=== PATIENT | female | born 1980 ===

== ENCOUNTER 2018-05-01 00:36 | Emergency (ER) | payer OTHER ==
[2018-05-01 01:27] LABS: ABSOLUTE BASOPHIL COUNT 0 /CUMM (0.0-0.2); ABSOLUTE EOSINOPHIL COUNT 0.2 /CUMM (0.0-0.7); ABSOLUTE GRANULOCYTE CT 3.9 /CUMM (1.4-6.5); ABSOLUTE MONOCYTE COUNT 0.7 /CUMM (0.10-0.60); BASOPHIL % 0.5 % (0.0-2.0); EOSINOPHIL % 2.2 % (0-5); HEMATOCRIT 35.9 % (37-47); MEAN CORPUSCULAR HGB 25.4 PG (27.0-31.0); MEAN CORPUSCULAR HGB CONC 32.8 G/DL (33.0-37.0); MEAN CORPUSCULAR VOLUME 77.6 FL (81.0-99.0); MEAN PLATELET VOLUME 7.9 FL (7.4-10.4); PLATELET COUNT 268 /CUMM (130-400); RBC DISTRIBUTION WIDTH 17.4 % (11.5-14.5); RED BLOOD CELL CT 4.63 /CUMM (4.20-5.40); WHITE BLOOD CELL COUNT 8.8 /CUMM (4.8-10.8)
--- NOTE | 2018-05-01 02:09 | ED GENERAL ADULT ---
History of Present Illness General Chief Complaint: Dizziness Stated Complaint: DIZZINESS/NV Source: patient, family, old records Exam Limitations: no limitations Vital Signs & Intake/Output Vital Signs & Intake/Output Vital Signs Date Time Temp Pulse Resp B/P B/P Pulse O2 O2 Flow FiO2 Mean Ox Delivery Rate 05/01 0130 98.3 80 17 122/70 98 Room Air Room Air Allergies Coded Allergies: No Known Allergies (05/01/18) Triage Note: PT TO TRIAGE AFTER HAVING ACUTE ONSET OF DIZZINESS, NAUSEA AND FEELING OF SPINNING. PT STATES SHE ONLY ATE A LITTLE BIT OF BAGEL, AND SOME CANDY AT WORK TODAY, BS 105 AT TRIAGE. PT DENIES PAIN. SKIN COOL AND CLAMMY. PT ACTIVELY RETCHING IN TRIAGE. Triage Nurses Notes Reviewed? yes Onset: yesterday Duration: hour(s):, continues in ED, getting worse Timing: recent history Injury Environment: home Severity: severe Modifying Factors: Improves With: rest. Worsens With: movement. LMP (ages 10-50): unknown : No Patient currently breastfeeds: No HPI: Several hours prior to admission patient complained of upset stomach. Prior to admission arriving home from work she complained of dizziness with nausea vomiting. She denies fever chills diarrhea abdominal pain chest pain cough shortness of breath headache dysuria rash bleeding. Past History Travel History Traveled to [place] past 21 day No Medical History Any Pertinent Medical History? none Neurological: NONE EENT: NONE Cardiovascular: NONE Respiratory: NONE Gastrointestinal: NONE Hepatic: NONE Renal: NONE Musculoskeletal: NONE Psychiatric: NONE Endocrine: NONE Blood Disorders: NONE Cancer(s): NONE ENGINEERING TECHNICAL WRITER/Reproductive: NONE Surgical History Surgical History: non-contributory Psychosocial History What is your primary language Maur[place]ian Tobacco Use: Never used ETOH Use: denies use Illicit Drug Use: denies illicit drug use Family History Hx Contributory? No Review of Systems Review of Systems Constitutional: Reports: see HPI, malaise. EENTM: Reports: no symptoms. Respiratory: Reports: no symptoms. Cardiovascular: Reports: no symptoms. GI: Reports: see HPI, vomiting. Genitourinary: Reports: no symptoms. Musculoskeletal: Reports: no symptoms. Skin: Reports: no symptoms. Neurological/Psychological: Reports: see HPI. Hematologic/Endocrine: Reports: no symptoms. Immunologic/Allergic: Reports: no symptoms. All Other Systems: Reviewed and Negative Physical Exam Physical Exam General Appearance: well developed/nourished, alert, awake, anxious, severe distress, thin Head: atraumatic, normal appearance Eyes: Bilateral: normal appearance, PERRL, EOMI, other (Nystagmus). Ears, Nose, Throat: normal pharynx, normal ENT inspection, hearing grossly normal Neck: normal inspection, supple, full range of motion, no midline tenderness Respiratory: normal breath sounds, chest non-tender, no respiratory distress, quiet respiration, lungs clear Cardiovascular: regular rate/rhythm, normal peripheral pulses, norml femoral pulses equa Peripheral Pulses: 4+ carotid (R), 4+ carotid (L) Gastrointestinal: normal bowel sounds, soft, non-tender, no organomegaly Back: normal inspection, normal range of motion, no vertebral tenderness Extremities: normal inspection, normal capillary refill, normal range of motion, no edema Neurologic/Psych: no motor/sensory deficits, awake, alert, oriented x 3, normal gait, normal mood/affect, 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 Skin: intact, normal color, warm/dry Lymphatic: no anterior cervical kenneth Core Measures ACS in differential dx? No CVA/TIA Diagnosis: No Sepsis Present: No Sepsis Focused Exam Completed? No Progress Differential Diagnoses I considered the following diagnoses in my evaluation of the patient: Labyrinthitis the stimulant neuronitis vertigo Plan of Care: Orders Procedure Date/time Status LACTIC ACID 05/01 349 Complete URINE 05/01 49 Complete URINALYSIS 05/01 49 Complete LIPASE 05/01 49 Complete LACTIC ACID 05/01 49 Complete COMPREHENSIVE METABOLIC PANEL 05/01 49 Complete CBC WITHOUT DIFFERENTIAL 05/01 49 Complete Laboratory Tests 05/01/18 0410: Urine Color YEL, Urine Clarity CLEAR, Urine pH 6.0, Ur Specific [place] 1.025, Urine Protein NEG, Urine Ketones TRACE H, Urine Nitrite NEG, Urine Bilirubin NEG, Urine Urobilinogen 0.2, Ur Leukocyte Esterase NEG, Ur Microscopic EXAM NOT REQUIRED, Urine Hemoglobin NEG, Urine Glucose NEG, Urine Test NEGATIVE 05/01/18 0408: Lactic Acid 0.8 05/01/18 0115: Anion Gap 11, Estimated GFR > 60, BUN/Creatinine Ratio 17.8, Glucose 121 H, Lactic Acid 1.8, Calcium 9.2, Total Bilirubin 0.3, AST 25, ALT 19, Alkaline Phosphatase 48, Total Protein 6.9, Albumin 4.2, Globulin 2.7, Albumin/Globulin Ratio 1.6, Lipase 125, CBC w Diff NO MAN DIFF REQ, RBC 4.63, MCV 77.6 L, MCH 25.4 L, MCHC 32.8 L, RDW 17.4 H, MPV 7.9, Gran % 44.0, Lymphocytes % 45.8, Monocytes % 7.5, Eosinophils % 2.2, Basophils % 0.5, Absolute Granulocytes 3.9, Absolute Lymphocytes 4.0 H, Absolute Monocytes 0.7 H, Absolute Eosinophils 0.2 , Absolute Basophils 0 Initial ED EKG: none Comments: Able to ambulate independently with mild dizziness. Feels better. Departure Departure Disposition: HOME OR SELF CARE Condition: Stable Clinical Impression Primary Impression: Vertigo Secondary Impressions: Nausea & vomiting Qualifiers: Vomiting Intractability: non-intractable Referrals: Patient Has No Primary Care Dr (PCP/Family) Departure Forms: Customer Survey General Discharge Information RELEASE- WORK Prescriptions: Current Visit Scripts Scopolamine 1 PATCH TOP Q72 PRN dizziness #4 PATCH Meclizine HCl 1 TAB PO TIDPRN PRN dizziness #30 TAB Ondansetron (Zofran Odt) 1 TAB SL TID PRN dizziness #10 TAB Critical Care Note Critical Care Note Critical Care Time: 30-74 min (45)
[2018-05-01] MEDS ORDERED: ZOFRAN ODT4 M1 SL (06:52)
[2018-05-01] MEDS ORDERED: MECLIZINE HCL25 MG PO (06:52)
[2018-05-01] MEDS ORDERED: SCOPOLAMINE1 EAC1 TOP (06:52)
[2018-05-01 07:45] VITALS: BP 101/63
== END 2018-05-01 08:30 ==
LOC: ERH 00:36
PROVIDERS: Physician Assistant
DX: R42 Dizziness and giddiness (principal)
CPT/HCPCS: 81003; 81025; 96361; 96365; 96375; J2405; J2550; J2765